=== PATIENT | male | born 1970 | race Caucasian/White ===

== ENCOUNTER 2022-03-13 08:51 | Outpatient (CLI) | payer MEDICARE, MEDICAID, SELFPAY ==
[2022-03-13 09:04] LABS: Hematocrit 44.6 % (40.0-54.0); Hemoglobin 14.9 g/dL (14.0-18.0); Mean Corpuscular HGB Conc 33.4 g/dL (32.0-36.0); Mean Corpuscular Hemoglobin 30.7 pg (27.0-31.0); Mean Corpuscular Volume 91.8 fL (78.0-102.0); Mean Platelet Volume 8.5 fl (8.7-11.0); Platelet Count Result 293 K/mm3 (150-420); Red Blood Count 4.86 M/mm3 (4.70-6.10); White Blood Count 9.4 K/mm3 (4.8-10.8)
[2022-03-13 09:41] LABS: Alanine Aminotransferase 30 U/L (16-63); Albumin Level 3.9 g/dL (3.4-5.0); Alkaline Phosphatase 107 U/L (46-116); Anion Gap 4 mmol/L (8-16); Aspartate Amino Transferase 26 U/L (15-37); Bilirubin,Total 0.4 mg/dL (0.00-1.00); Blood Urea Nitrogen 15 mg/dL (7-18); Calcium 9.4 mg/dL (8.5-10.1); Carbon Dioxide 32 mmol/L (21-32); Chloride 102 mmol/L (98-108); Cholesterol 272 mg/dL (0-200); Estimated Glomerular Filt Rate > 60; Glucose 85 mg/dL (70-99); HDL Direct 54 mg/dL (40-60); LDL Cholesterol Calculated 189 mg/dL (<130); Osmolality Calculated 285 mOsm/kg (285-295); Potassium 4.5 mmol/L (3.5-5.1); Sodium 138 mmol/L (136-145); Total Protein 7.3 g/dL (6.4-8.2); Triglycerides 143 mg/dL (0-150)
== END 2022-03-13 08:52 | disposition home or self-care (01) ==
LOC: CHSLAB 08:56
PROVIDERS: PCP Family Medicine; Visit Provider Family Medicine
DX: J44.9 Chronic obstructive pulmonary disease, unspecified (principal); Z00.00 Encounter for general adult medical examination without abnormal findings; Z13.6 Encounter for screening for cardiovascular disorders
CPT/HCPCS: 36415; 80053; 80061; 85027

== ENCOUNTER 2022-04-12 11:16 | Outpatient (CLI) | payer MEDICARE, SELFPAY ==
--- NOTE | 2022-04-12 11:24 | ECG_ITS ---
Measurements Intervals [place] Rate: 61 P: 35 CA: 122 QRS: 31 QRSD: 75 T: 20 QT: 385 QTc: 391 Interpretive Statements SINUS RHYTHM NORMAL ECG NO PREVIOUS ECG AVAILABLE FOR COMPARISON Electronically Signed On 04-12-2022 14:59:19 CDT by Sagar Baez M.D.
== END 2022-04-12 11:17 | disposition home or self-care (01) ==
LOC: ANHSURGERY 11:20
PROVIDERS: PCP Family Medicine; Visit Provider Surgery
DX: K40.90 Unilateral inguinal hernia, without obstruction or gangrene, not specified as recurrent (principal); E78.00 Pure hypercholesterolemia, unspecified; Z01.818 Encounter for other preprocedural examination
CPT/HCPCS: 36415; 86850; 86900; 86901; 93005

== ENCOUNTER 2022-04-17 01:59 | Day surgery (SDC) | payer MEDICARE, SELFPAY ==
--- NOTE | 2022-04-09 13:24 | PC.NURSE ---
Report to the Outpatient Waiting Room, entrance under the green pavilion located off [facility], at time _1030 on date __04/17/22 . OR Time: _1230 . Time changes happen often and if your time is changed the preop area will call you the afternoon before. - You and your visitor will be asked to self-screen and do not enter if you have any COVID symptoms. - We encourage only one visitor and NO visitors under age 16 are allowed at this time. Your visitor will receive communication by the phone number that is given day of service. - The patient visitor is requested to social distance or may leave the building when not with patient due to restrictions. - A mask is required within the hospital. Patients may have clear liquids (water, carbonated beverages, clear teas, apple juice) until 3 hours prior to surgery with a maximum of 20 ounces. - No food from midnight until time of surgery - Infants may have breast milk until 4 hours before surgery, formula 6 hours prior to surgery. - Children will be allowed to drink immediately following surgery. If applicable, please bring a bottle or sippy cup to assist with drinking. Juice, water, soda, and popsicles are readily available. For infants on formula, please bring formula the day of surgery. Pacifiers are allowed. Take the following medications with a SIP of water the morning of surgery: ____ELLIPTA_INHALER Medications to discontinue per physician TUMS Date to take last dose___04/13/22 HIBICLENS SHOWER MORNING OF SURGERY Please no make-up, nail yi, hairspray, perfume, deodorant, or body powder the day of surgery. No jewelry (including any body piercings) or valuables the day of surgery, leave them at home. Please take a shower or bath the night before, or the morning of, surgery with an antibacterial soap. Wear comfortable, loose fitting clothing. Children are encouraged to wear pajamas. - Jewelry must be removed prior to entering the operating room. Rings and piercings that are not removed may be cut off. - The hospital will not accept responsibility for valuables. - Please leave all valuables, including medications, at home the day of surgery. If you are going home after surgery, a licensed racecar driver must drive you home. - NO public transportation without another adult. - We recommend that an adult stay with you for 24 hours following discharge. - We also recommend that you do not drive, make important decision, drink alcoholic beverages, or take any drugs that were not prescribed by your health care provider for at least 24 hours after your discharge time. For Pediatric surgeries, we recommend two adults accompany the child home. Follow any additional instructions given to you from your surgeon. If you or anyone in your household have experienced Covid symptoms in the past week, please notify your surgeon or the nurse liaison at the phone number below for possible testing. Telephone instructions given to __PATIENT and asked if any additional questions and then verbalized understanding. Patient advised to call surgeon office or pre surgery nurse liaison [phone] if any additional questions.
[2022-04-09 13:36] VITALS: BMI 23.8
--- NOTE | 2022-04-16 10:02 | WPDANESEPPF ---
Anes - Initial Pre Proc Eval Procedure: Operation Date: 04/17/22 12:30 Proposed Procedures p Laparoscopic Assisted Right Inguinal Hernia Repair with Mesh Davinci Assisted - Alexander Valdez DO <Attila Santiago MD - Last Filed: 04/20/22 10:45> Date/Time: 04/16/22 10:02 <Attila Santiago MD - Last Filed: 04/20/22 10:45> Surgeon: Alexander Valdez DO <Attila Santiago MD - Last Filed: 04/20/22 10:45> Pre Op Diagnosis: right inguinal hernia <Attila Santiago MD - Last Filed: 04/20/22 10:45> Patient Data Age: 52 Gender: M Height: 1.69 m Weight: 68.05 kg <Attila Santiago MD - Last Filed: 04/20/22 10:45> Allergies Allergy/AdvReac Type Severity Reaction Status Date / Time No Known Allergies Allergy Verified 04/17/22 10:46 <Attila Santiago MD - Last Filed: 04/20/22 10:45> Home Medications Medication Instructions Recorded Confirmed Type albuterol sulfate 90 mcg/actuation 1 inh inhalation Q4H PRN shortness 03/13/22 04/17/22 Rx aerosol inhaler of breath or wheezing #8.5 grams atorvastatin 40 mg tablet 40 mg PO DAILY #90 tabs 03/13/22 04/17/22 Rx umeclidinium 62.5 mcg/actuation 1 inh inhalation Q24H #30 ea 03/13/22 04/17/22 Rx blister powder for inhalation (Incruse Ellipta) acetaminophen 500 mg tablet 1,000 mg PO Q6H PRN Pain 04/09/22 04/17/22 History calcium carbonate 200 mg calcium 200 mg PO PRN PRN Heartburn 04/09/22 04/17/22 History (500 mg) chewable tablet (Tums) hydrocodone 5 mg-acetaminophen 325 1 tablet PO Q4H PRN pain #10 tabs 04/17/22 Rx mg tablet <Attila Santiago MD - Last Filed: 04/20/22 10:45> Patient hx anesthesia problems: none <Mo Wells MD - Last Filed: 04/17/22 10:53> Family hx anesthesia problems: none <Mo Wells MD - Last Filed: 04/17/22 10:53> Results Review: All pre-operative results and documents have been reviewed as part of the pre-operative evaluation. <Attila Santiago MD - Last Filed: 04/20/22 10:45> [facility] Past Medical History Medical History: Medical History Chronic GERD COPD (chronic obstructive pulmonary disease) Hypercholesterolemia Osteoarthritis Tobacco use <Attila Santiago MD - Last Filed: 04/20/22 10:45> Family History Family History: Family History Father Patient's father is in good health Mother Family history of diabetes mellitus in first degree relative Family history of heart disease in male family member before age 55 Sibling Family history of diabetes mellitus in first degree relative <Attila Santiago MD - Last Filed: 04/20/22 10:45> Social History Social History: Social History Smoking packs per day: 1 Smoking cigarettes per day: 20.0 Years smoked: 10 Smoking pack-years: 10.00 Smoking status: Current every day smoker Tobacco type: cigarettes Additional smoking assessment comments: CURRENTLY SMOKES 2-3 CIGARETTES PER DAY Alcohol intake: former Spiritual care concerns: No <Attila Santiago MD - Last Filed: 04/20/22 10:45> Anes - Eval Final PreProcedure Day of Procedure 04/16/22 10:02 <Attila Santiago MD - Last Filed: 04/20/22 10:45> Patient weight: normal <Attila Santiago MD - Last Filed: 04/20/22 10:45> Heart: regular rate and rhythm <Attila Santiago MD - Last Filed: 04/20/22 10:45> Lungs: clear to auscultation and normal air movement <Attila Santiago MD - Last Filed: 04/20/22 10:45> Airway: Mallampati scale class II <Attila Santiago MD - Last Filed: 04/20/22 10:45> Mallampati scale class III and special considerations poor opening, poor extension and poor dentition <Mo Wells MD - Last Filed: 04/17/22 10:53> Neurological: alert and oriented <Attila Santiago MD - Last Filed: 04/20/22 10:45> Last oral intake: >/= 8
[2022-04-17] VITALS (11 sets, daily range): BP systolic 116–130; BP diastolic 68–82; PULSE 64–80; RESP 14–18; TEMP 36.7–36.8; O2SAT 97–100
[2022-04-17] MEDS: ACETAMINOPHEN 500 MG TABLET 1000 MG PO (11:15)
--- NOTE | 2022-04-17 11:16 | WPDHPUPDATE1 ---
History and Physical Update Update Date/Time: 04/17/22 11:16 History and Physical has been reviewed, including an updated exam of the patient. There are NO changes in the patient's condition. Risks, benefits, and alternatives have been discussed and questions answered. Patient agrees to proceed with procedure.
[2022-04-17] MEDS: LACTATED RINGERS 1,000 ML 30 ML IV CONT ×2 (11:21→13:17)
[2022-04-17] MEDS: KETOROLAC 15 MG/ML VIAL (*BKC) IV PUSH (11:21)
[2022-04-17] MEDS: ceFAZolin 2 GM/D5W 50 ML 2 GM/50 ML BAG IVPB (11:32)
[2022-04-17] MEDS: BUPIVACAINE/EPINEPHRINE 0.25% 50 ML VIAL 30 ML INFILTRATE (11:56)
--- NOTE | 2022-04-17 13:11 | W.PM.PROC2 ---
Procedure Note - Detailed Date of Procedure 04/17/22 Pre-op Diagnosis right inguinal hernia Post-op Diagnosis Same (Indirect inguinal hernia) Procedure Performed Laparoscopic right inguinal hernia repair with mesh, da Brock assisted Surgeon Alexander Valdez, Anesthesia General and Local (0.5% bupivacaine with epinephrine) Indications This is a 52-year-old man who presents with a right groin bulge that he noticed about 1 year ago. He has pain with activity and the area has enlarged over time. He was found to have a large right inguinal hernia containing bowel that appeared to reducible on exam. Discussions were made with the patient about treatment options and decision was made to proceed with robotic assisted laparoscopic right inguinal hernia repair with mesh. Findings Laparoscopic right inguinal hernia repair was performed. The patient was found to have a large indirect right inguinal hernia. No bowel was within the hernia once the abdomen was insufflated. The hernia sac was completely reduced. A robotic transabdominal preperitoneal approach was utilized. A large right 3DMax mid mesh was placed overlying the entire right myopectineal orifice. No specimens were obtained for pathology. Description of Procedure Procedure as well as risks, benefits, and alternatives were discussed with the patient. Written consent was obtained and placed in chart prior to procedure. Patient was brought back to surgical suite. He was placed supine on operating table. Time-out was done to confirm patient and procedure. He was then intubated by Anesthesia Department. His abdomen was prepped and draped in sterile fashion using chlorhexidine prep. 0.5% bupivacaine with epinephrine was infiltrated at each location for incision. A 12 millimeter transverse incision was made just superior to the umbilicus using a 15 blade scalpel. Blunt dissection was carried out down to the linea alba. A vertical incision was made at the linea alba using a 15 blade scalpel. The peritoneum was then bluntly entered. A 12 millimeter trocar was inserted and carbon dioxide insufflation was used to create a pneumoperitoneum. A camera was inserted and the abdominal cavity was inspected. The patient was placed in slight Trendelenburg position. An 8 millimeter incision was made on the right lateral abdomen and an 8 millimeter trocar was inserted under direct visualization. Another 8 millimeter incision was made in the left lateral abdomen and an 8 millimeter trocar was inserted under direct visualization. The robotic arms were brought up to the patient's bedside and secured to the ports. The camera and instruments were inserted. I then moved over to the robotic console and took control of the camera and instruments. After careful inspection of the abdominal cavity, I began scoring the peritoneum along the right lower quadrant using scissors with electrocautery. The preperitoneal plane was entered and this was carefully dissected caudally along the inferior epigastric vessels. Careful dissection with scissors with electrocautery and blunt dissection was used to continue this dissection. I dissected far enough laterally to allow for mesh placement, and also dissected medially to identify the pubic arch and Genaro's ligament. The hernia sac was identified and carefully dissected posteriorly. The cord contents were also identified and the peritoneum was carefully dissected far enough posteriorly to allow for mesh placement. Once an adequate pocket was created, I then placed the mesh within the preperitoneal pocket and carefully unfolded it. The mesh was centered on the hernia defect with adequate overlap circumferentially. The inferior edge of the mesh was inspected to ensure that it was far enough away from the peritoneal edge. The mesh appeared in proper position overlying the entire myopectineal orifice. The mesh was secured using 3-0 Vicryl simple interrupted sutures in Genaro's ligament,
[2022-04-17] MEDS: fentaNYL CITRATE INJ (*CRX) 100 MCG/2 ML VIAL 25 MCG IV PUSH (13:53)
[2022-04-17] MEDS: oxyCODONE HCL (*CRX) 5 MG TAB IR PO (14:33)
== END 2022-04-17 15:25 | disposition home or self-care (01) ==
PROVIDERS: PCP Family Medicine; Visit Provider Surgery
PROC: 8E0Y4CZ Robotic Assisted Procedure of Lower Extremity, Percutaneous Endoscopic Approach (ICD-10-PCS; CPT 49650; principal; 2022-04-17 12:30)
DX: K40.90 Unilateral inguinal hernia, without obstruction or gangrene, not specified as recurrent (principal); Z79.51 Long term (current) use of inhaled steroids; J44.9 Chronic obstructive pulmonary disease, unspecified; K21.9 Gastro-esophageal reflux disease without esophagitis; E78.00 Pure hypercholesterolemia, unspecified; F17.210 Nicotine dependence, cigarettes, uncomplicated
CPT/HCPCS: 49650; S2900; 36415; 86850; 86900; 86901; 93005; A9270; C1781; J0690; J1100; J1170; J1885; J2250; J2405; J2704; J2710; J3010; J7120